=== PATIENT | female | born 1970 | race Caucasian/White ===

== ENCOUNTER 2019-07-10 13:10 | Emergency (ER) | payer OTHER ==
[~2019-07-10] VITALS: Ht 170.2 cm; Wt 67.8 kg
[2019-07-10 13:56] LABS: BASOPHILS # (AUTO) 0.03 x10^3/uL (0-0.1); BASOPHILS % (AUTO) 0 % (0-1); EOSINOPHILS # (AUTO) 0.05 x10^3/uL (0-0.4); EOSINOPHILS % (AUTO) 1 % (1-7); LYMPHOCYTES # (AUTO) 1.98 x10^3/uL (1-3.4); LYMPHOCYTES % (AUTO) 24 % (22-44); MD NO; MEAN CORPUSCULAR HEMOGLOBIN 31.3 pg (27.0-34.8); MEAN CORPUSCULAR HGB CONC 33.7 g/dL (32.4-35.8); MEAN PLATELET VOLUME 8.5 fL (7.4-10.4); MONOCYTES # (AUTO) 0.61 x10^3/uL (0.2-0.8); MONOCYTES % (AUTO) 7 % (2-9); NEUTROPHILS # (AUTO) 5.74 x10^3/uL (1.8-6.8); NEUTROPHILS % (AUTO) 68 % (42-75); PLATELET COUNT 268 x10^3/uL (130-400); RED BLOOD COUNT 4.98 x10^6/uL (3.82-5.3); RED CELL DISTRIBUTION WIDTH 13.2 % (9.6-15.2)
[2019-07-10 14:03] LABS: ANION GAP 8 mmol/L (5-15); CALCIUM 9.3 mg/dL (8.5-10.1); CHLORIDE 107 mmol/L (98-107)
[2019-07-10 14:10] LABS: ALANINE AMINOTRANSFERASE 25 U/L (12-78); ALKALINE PHOSPHATASE 55 U/L (45-117); BILIRUBIN,TOTAL 0.4 mg/dL (0.2-1.0); TOTAL PROTEIN 8.2 g/dL (6.4-8.2); TROPONIN I < 0.015 ng/mL (0.000-0.045)
--- NOTE | 2019-07-10 14:18 | NUR ---
FIRST CONTACT WITH PT. PT C/O SEVERE HEADACHE, SINCE LAST NIGHT AT 1999, TREATED WITH 600MG IBUPROFEN TO SOME RELIEF. SHARP PAIN CAME BACK THIS MORNING AT 1100, TREATED WITH IBUPROFEN TO MILD RELIEF. WENT TO AND WAS FOUND TO BE HYPERTENSIVE. SENT HERE. STATES SHE HAS NEVER HAD A HEADACHE LIKE THIS BEFORE. ALL MONITORS IN PLACE. CALL LIGHT WITHIN REACH. PT'S AOX4. RESPS EVEN AND UNLABORED.
[2019-07-10] MEDS ORDERED: LABETALOL 5MG/ML, 20ML ONE (14:26)
[2019-07-10] MEDS ORDERED: LORazepam 2 MG/ML, 1ML ONE (14:26)
[2019-07-10] MEDS ORDERED: ENALAPRILAT 1.25 MG/ML, 1ML ONE (14:26)
[2019-07-10] MEDS ORDERED: ENALAPRILAT 1.25 MG/ML, 2ML IV ONE (14:30)
[2019-07-10] MEDS ORDERED: LORazepam 2 MG/ML, 1ML IVPush ONE (14:30)
[2019-07-10] MEDS ORDERED: LABETALOL 5MG/ML, 20ML IVPush ONE (14:30)
[2019-07-10] MEDS ORDERED: SODIUM CHLORIDE FLUSH 10ML SYR IVF ONE (14:30)
--- NOTE | 2019-07-10 14:37 | NUR ---
PT AMB TO BR WITH STEADY GAIT.
[2019-07-10 15:03] LABS: MICROSCOPIC NOT IND
--- NOTE | 2019-07-10 15:04 | NUR ---
piv est on l ac without complications. pt tolerated well.
--- NOTE | 2019-07-10 15:05 | NUR ---
pt medicated per emar. pt tolerated well.
[2019-07-10 15:07] LABS: CULTURE INDICATED? NO
[2019-07-10 16:17] VITALS: BP 127/89
--- NOTE | 2019-07-10 16:18 | NUR ---
Patient given discharge instructions and they have confirmed that they understand the instructions. Patient ambulatory with steady gait.
== END 2019-07-10 16:19 | disposition home or self-care (01) ==
LOC: ED 16:10
DX: R51 Headache (principal); J32.9 Chronic sinusitis, unspecified; I10 Essential (primary) hypertension
CPT/HCPCS: 36415; 70450; 71046; 80053; 81003; 83735; 84484; 85025; 93005; 96374; 96375; 99285; J2060